=== PATIENT | male | born 1965 | race Caucasian/White ===

== ENCOUNTER 2022-11-08 11:52 | Day surgery (SDC) | payer OTHER ==
[2022-11-07 10:03] VITALS: BMI 19.8
[2022-11-08] MEDS ORDERED: PHENYLEPHRINE-NS 100 MCG/ML 10 ML SYRINGE ONE (14:22)
[2022-11-08] MEDS ORDERED: Lidocaine 1% PF 5 ML VIAL ONE (14:22)
[2022-11-08] MEDS ORDERED: ePHEDrine Sulfate 50 MG/10 ML VIAL ONE (14:22)
== END 2022-11-08 15:45 | disposition home or self-care (01) ==
LOC: SDC 11:52
PROVIDERS: ATTEND Internal Medicine Gastroenterology
PROC: 0DB98ZX Excision of Duodenum, Via Natural or Artificial Opening Endoscopic, Diagnostic (ICD-10-PCS; principal; 2022-11-08)
PROC: 0DB58ZX Excision of Esophagus, Via Natural or Artificial Opening Endoscopic, Diagnostic (ICD-10-PCS; 2022-11-08)
DX: K22.70 Barrett's esophagus without dysplasia (principal); K22.81 Esophageal polyp; K44.9 Diaphragmatic hernia without obstruction or gangrene; K31.89 Other diseases of stomach and duodenum; K29.50 Unspecified chronic gastritis without bleeding; K21.00 Gastro-esophageal reflux disease with esophagitis, without bleeding; G40.909 Epilepsy, unspecified, not intractable, without status epilepticus; G91.9 Hydrocephalus, unspecified; F41.8 Other specified anxiety disorders; K59.00 Constipation, unspecified; R06.6 Hiccough; Z86.73 Personal history of transient ischemic attack (TIA), and cerebral infarction without residual deficits; Z79.899 Other long term (current) drug therapy
CPT/HCPCS: 88305; 88342